=== PATIENT | male | born 1960 | race Caucasian/White ===

== ENCOUNTER 2016-09-29 07:11 | Inpatient (IN) ==
--- NOTE | 2016-09-26 22:58 | Discharge Summary ---
<GalindoKiran - Last Filed: 09/29/16 09:54> Date of Encounter: 09/29/16 - Discharge Diagnosis (1) Hypertension Priority: Secondary Status: Chronic Qualifiers: Hypertension type: essential hypertension Qualified Code(s): I10 - Essential (primary) hypertension (2) Obstructive sleep apnea Priority: Secondary Status: Chronic (3) Arthritis of knee, left Priority: Primary Status: Chronic (4) Status post total knee replacement, left Priority: Primary Status: Acute - Discharge Medications Home Medications: Atorvastatin Calcium 40 mg PO DAILY 02/07/16 [History] Fluticasone Propionate Nasal [Flonase] 50 mcg NS BID PRN 02/07/16 [History] Levothyroxine Sodium 25 mcg PO DAILY 02/07/16 [History] Trazodone HCl 150 mg PO HS PRN 02/07/16 [History] Aspirin Enteric Coated [Aspirin EC] 325 mg PO DAILY #21 tablet. 09/26/16 [Rx] OxyCODONE Immed Rel [Roxicodone 5 MG] 5 - 10 mg PO Q6H PRN #40 tablet 09/26/16 [ Rx] Etodolac 500 mg PO Q12H 09/29/16 [History] Pregabalin [Lyrica] 100 mg PO BID 09/29/16 [History] Allergies/Adverse Reactions: Allergies gabapentin Allergy (Verified 09/29/16 08:09) Rash hydrocodone Adverse Reaction (Verified 09/29/16 08:09) "BREAK OUT" Primary care physician: PCP NONE - Patient Status Disposition: Home, Self-Care Condition: Good - Discharge Instructions Follow Up With: NONE,PCP [Primary Care Provider] - Additional Instructions: Opsite dressing, leave intact until first post-operative visit. If dressing becomes >50% saturated, contact office, remove dressing and place appropriate dressing in its place. Do not allow for dressing to get wet. Brad in place, plan to remove at post-operative day #14-16. Total Joint Precautions x 6 weeks Apply cold therapy wrap 3-6x/day for 20 minutes at a time. Encourage ambulation throughout the day Use Incentive spirometer 10x/hour. Elevate affected extremity above heart as tolerated. Brace: Wear knee immobilizer at night x 2 weeks. D/C to Home this AM - has therapist at home who will be working with him. - Hospital Course Hospital course: Mr. Terrazas is a 56 year old male - Time Spent with Patient Total time spent providing and/or coordinating discharge services: <Berkley Shook Sadaf - Last Filed: 10/01/16 10:28> Date of Encounter: 10/01/16 Time of Encounter: 10:25 - Discharge Diagnosis (1) Arthritis of knee, left Priority: Primary Status: Chronic (2) Status post total knee replacement, left Priority: Primary Status: Acute (3) Hypertension Priority: Secondary Status: Chronic Qualifiers: Hypertension type: essential hypertension Qualified Code(s): I10 - Essential (primary) hypertension (4) Obstructive sleep apnea Priority: Secondary Status: Chronic Comments: CPAP Date of admission: 09/29/16 Primary care physician: PCP NONE Discharging clinician: Kiran Galindo - Patient Status Functional capacity at discharge: uses cane/walker Overall status at discharge: patient is back to baseline - Diet and Activity Activity: as per physical therapy - Hospital Course Hospital course: Mr. Terrazas is a 56 year old male, status post Left TKR. He had an uneventful post-operative recovery course. He received antibiotics and physical therapy and were discharged in stable condition. There will follow-up in the office in 2 weeks. Opsite dressing, leave intact until first post-operative visit. If dressing becomes >50% saturated, contact office, remove dressing and place appropriate dressing in its place. Do not allow for dressing to get wet. [place] in place, plan to remove at post-operative day #14-16. Total Joint Precautions x 6 weeks Apply cold therapy wrap 3-6x/day for 20 minutes at a time. Encourage ambulation throughout the day Use Incentive spirometer 10x/hour. Elevate affected extremity above heart as tolerated. Brace: Wear knee immobilizer at night x 2 weeks. - Time Spent with Patient Total time spent providing and/or coordinating discharge services: Less than 30 minutes
--- NOTE | 2016-09-29 07:25 | History & Physical Report ---
Date of Encounter: 09/29/16 Time of Encounter: 07:25 24 Hour HP Update - Instructions Instructions: If the History and Physical is less than 30 days old and was completed prior to A.M. admission and or procedure and has NOT been updated on calendar day of procedure please complete this update prior to performing procedure. - Update Patient reports changes in Medical Condition: No Changes in examination, assessment, or condition: No Changes in Medication: No Preop tests/diagnostics Reviewed: Yes Surgery Remains Indicated: Yes Consent for Planned Operative Procedure(s) Verified: Yes - Pre-Operative Checklist Preoperative Checklist Indicated: No Prophylactic Antibiotic Ordered: Yes Is VTE Prophylaxis Indicated?: Yes
--- NOTE | 2016-09-29 07:51 | Anesthesia Evaluation PreOp ---
Date of Encounter: 09/29/16 Time of Encounter: 07:48 - Past History Planned Operation: l tka Cardiac History: Hyperlipidemia Pulmonary History: JERRY Dx VEHICLE TRIMMER History: Other (bilat blaine, anxiety, depression, chronic lbp with radic) Other Medical History: Thyroid, GERD Anesthesia History: No Prior Anesthetic Complications, Past Anesthesia ( cholecyst, rih, t&a, lumbar x6, sinus x 2, l tka, l knee arth) Alcohol Use: none Drug use: none Medications and Allergies Atorvastatin Calcium 40 mg PO DAILY 02/07/16 [History] Citalopram Hydrobromide [Celexa] 20 mg PO DAILY 02/07/16 [History] Fluticasone Propionate Nasal [Flonase] 50 mcg NS BID PRN 02/07/16 [History] Gabapentin [Neurontin] 600 mg PO TID 02/07/16 [History] Levothyroxine Sodium 25 mcg PO DAILY 02/07/16 [History] Meclizine HCl [Verticalm] 25 mg PO DAILY PRN 02/07/16 [History] Omeprazole 20 mg PO DAILY 02/07/16 [History] Trazodone HCl 150 mg PO HS PRN 02/07/16 [History] Cyclobenzaprine [Flexeril] 10 mg PO TID #15 tablet 05/12/16 [Rx] Ibuprofen [Motrin] 800 mg PO Q8HR #30 tablet 08/06/16 [Rx] Aspirin Enteric Coated [Aspirin EC] 325 mg PO DAILY #21 tablet. 09/26/16 [Rx] OxyCODONE Immed Rel [Roxicodone 5 MG] 5 - 10 mg PO Q6H PRN #40 tablet 09/26/16 [ Rx] Allergies gabapentin Allergy (Verified 07/30/16 21:05) Rash hydrocodone Allergy (Verified 07/30/16 21:05) "BREAK OUT" - Meds/Allergy Pre-op Review Medications Reviewed: Yes Allergies Reviewed: Yes Beta Blockers on Current Med List: No Anesthesia Results - Labs Laboratory Tests 09/24/16 09/24/16 09/24/16 08:05 08:05 08:05 Hgb 13.3 Hct 40.6 Plt Count 255 PT 11.4 INR 1.1 APTT 31.3 Sodium 142 Potassium 3.8 Creatinine 0.93 Anesthesia Exam O2 Sat Height 1.73 m Height 1.73 m Weight 83.461 kg Weight 83.461 kg O2 Sat by Pulse Oximetry 95 Vital Signs Temp Pulse Resp BP Pulse Ox 98.0 F 74 18 141/87 95 09/29/16 07:27 09/29/16 07:27 09/29/16 07:27 09/29/16 07:27 09/29/16 07:27 Height: 1.73 Weight: 83 NPO (# of Hours): >8 - HEENT Pupil (Motor): Pupils equal, EOMI Mallampati: II Teeth: Poor dentition Oral Opening: Greater than 3 - VEHICLE TRIMMER LOC: Oriented VEHICLE TRIMMER Motor: Normal RUE, Normal LUE, Normal RLE, Normal LLE, Normal Face VEHICLE TRIMMER Sensory: Normal: RUE, LUE, RLE, LLE, Face - Cardiac Rhythm: Regular Murmur: None - Pulmonary Breath Sounds: bilateral Clear Respiratory Effort: Symmetrical Anesthesia Assess/Plan ASA Score: 2 (lidocaine gtt, ketamine gtt) Modified Keyes Scale for Level of Consciousness: Cooperative, oriented, and tranquil Anesthetic Plan: General Monitoring Plan: Standard Monitors Recovery Plan: PACU
[2016-09-29] MEDS ORDERED: Ringers Solution, Lactated 1,000 ML IVC SCH ×5 (08:00→12:44)
[2016-09-29] MEDS ORDERED: CloNIDine Patch 0.1 MG PATCH (WEEKLY) TD SCH ×2 (08:00→12:44)
[2016-09-29] MEDS: Ringers Solution, Lactated 1,000 ML IVC SCH ×2 (08:21→11:57)
[2016-09-29] MEDS ORDERED: Dexamethasone 4 MG/ML VIAL ONE (08:33)
[2016-09-29] MEDS ORDERED: *HR* Propofol 200 MG/20 ML VIAL IVP ONE (08:33)
[2016-09-29] MEDS ORDERED: Ondansetron 4 MG/2 ML VIAL ONE (08:33)
[2016-09-29] MEDS ORDERED: *HR* Midazolam HCl 2 MG/2 ML VIAL ONE (08:33)
[2016-09-29] MEDS ORDERED: *HR* FentaNYL (PF) 100 MCG/2 ML VIAL ONE ×2 (08:33→12:11)
[2016-09-29] MEDS ORDERED: Lidocaine -MPF 2% 2 ML VIAL ONE (08:34)
[2016-09-29] MEDS ORDERED: CeFAZolin Pre 2,000 MG/100 ML 2,000 MG/100 ML BAG IVPB ONE ×2 (09:02→12:44)
[2016-09-29] MEDS ORDERED: Ketamine *HR* 500 MG/10 ML MDV ONE (09:33)
[2016-09-29] MEDS ORDERED: *HR* HYDROmorphone (PF) 1 MG/ML SYRINGE IVP PRN (09:56)
[2016-09-29] MEDS ORDERED: *HR* OxyCODONE Immed Rel 5 MG TABLET PO PRN ×3 (09:56→12:44)
[2016-09-29] MEDS ORDERED: Sennosides 8.6 MG TABLET PO PRN ×2 (09:56→21:00)
[2016-09-29] MEDS ORDERED: Ondansetron 4 MG/2 ML VIAL IVP PRN ×3 (09:56→12:44)
[2016-09-29] MEDS ORDERED: Naloxone 0.4 MG/ML INJ IVP PRN ×3 (09:56→12:44)
[2016-09-29] MEDS ORDERED: MOM Conc 10 ML UD.LIQ PO PRN ×2 (09:56→21:00)
[2016-09-29] MEDS ORDERED: *HR* Meperidine 25 MG/ML SYRINGE IVP PRN (09:58)
[2016-09-29] MEDS ORDERED: *HR* HYDROmorphone 2 MG/ML SYRINGE ONE (10:10)
[2016-09-29] MEDS: *HR* HYDROmorphone (PF) 1 MG/ML SYRINGE IVP PRN ×6 (11:25→21:32)
[2016-09-29] MEDS ORDERED: *HR* Phenylephrine 10 MG/ML VIAL ONE (11:44)
--- NOTE | 2016-09-29 11:51 | Orthopedic Operative Note ---
Date of procedure: 09/29/16 Pre-op diagnosis: Left knee arthritis Post-op diagnosis: same Procedure: Procedure: Left Total knee replacement Estimated blood loss: 200 cc Hardware: Metal and polyethylene replacement. Arthrex Femur:8 Tibia:7 PS insert:10 Patella:40 Exam Under anesthesia: Full motion no instability Procedural Notes: Grade 4 arthritic changes all 3 compartments Operative procedure: The patient was brought to the operating room and placed on the operating room table. After general anesthesia was administered the operative knee was examined. Findings were noted in the exam under anesthesia. The operative extremity was prepped and draped in sterile surgical fashion. The patient received IV antibiotics prior to skin incision. A standard midline incision was made centered over the patella. The incision was made through the skin and subcutaneous tissue. A medial parapatellar tendon approach was performed. Care was taken to preserve tissue along the medial aspect of the patella. And to protect the patella tendon. The deep MCL was released off the medial tibia. The infra patella fat pad was excised. Knee was brought into flexion. Patient noted to have grade 4 arthritic changes all 3 compartments. The entry hole was made for the intramedullary femoral guide. The guide was seated in 6 degrees of valgus. Anterior cut was made followed by the distal cut. The ACL the PCL the medial and the lateral menisci were excised. The tibia was subluxed forward. The entry hole was made for the intramedullary tibial guide. Guide was seated to resect 2 mm off the more abnormal side. The knee was brought into flexion the distal femur was sized to an 8. The femoral guide was seated, the anterior cut was made followed by the posterior condylar cut, followed by the chamfer cuts. The finishing guide was seated the box cut was made and the lug holes were drilled. The tibia was sized to a 7, the tibial tray was seated and prepared with the large drill followed by the fin cutter. Trial reduction revealed full extension no varus valgus instability with the appropriate 10 PS Saskia. The patella was everted and cut was made at the level of the insertion of the quadriceps and patella tendon. The patella was sized to a 40 the guide was seated and the lug holes are drilled. Trial reduction revealed excellent patella tracking. All trial components were removed all bony surfaces were irrigated. The tibia was cemented first followed by the femur. The 10 PS Saskia was seated and the knee was brought into full extension. The patella was cemented and held in place with the patellar holding clamp. After the cement had hardened, the knee sat for 2 minutes with a Betadine saline solution. The knee was then irrigated out with 2 L of pulse irrigation. The knee was closed by the PA. The extensor mechanism was closed with #2 FiberWire suture and #2 PDS suture. The subcutaneous tissue was then irrigated and closed deep with #1 PDS suture superficially with 0 PDS suture and skin was closed with skin boston. The patient was then placed in a sterile dressing and a postoperative brace extubated and transferred to recovery room in stable condition. Anesthesia: CAROLE Surgeon: Kiran Galindo Condition: stable Disposition: PACU
--- NOTE | 2016-09-29 12:16 | Anesthesia Evaluation Post Op ---
Date of Encounter: 09/29/16 Time of Encounter: 12:15 - Vital Signs Vital Signs: Vital Signs/O2 Sat/Glucose, Most Current Temp Pulse Resp BP Pulse Ox 09/29/16 12:05 99.2 F 84 16 139/83 98 09/29/16 11:55 83 16 121/82 98 09/29/16 11:45 82 14 132/87 99 09/29/16 11:35 99.4 F 90 16 132/88 99 09/29/16 11:25 84 14 131/83 98 09/29/16 11:15 85 14 120/91 98 09/29/16 11:05 97.1 F L 84 16 138/86 98 - Lungs Lungs: Clear Ascult./Percussion - Airway Airway: Non-obstructed - Cardiovascular Regular Rate - Mental Status Mental Status: Alert & Oriented, Answers Appropriately - Pain Pain Scale: 2 - Nausea Vomiting Nausea Vomiting: Not Present - Hydration Hydration: Tolerates oral liquids - Discharge PostOp Status: Transfer Patient to floor
[2016-09-29] MEDS ORDERED: Fluticasone Propionate Nasal 50 MCG/SPRAY BOTTLE NS PRN (12:44)
[2016-09-29] MEDS: *HR* OxyCODONE Immed Rel 5 MG TABLET PO PRN ×2 (13:24→20:06)
[2016-09-29 13:42] LABS: Hematocrit 40.5 % (37.5-50.1)
[2016-09-29] MEDS: ceFAZolin 2,000 MG in D5% in Water 100 ML IVPB SCH ×2 (15:35→23:52)
[2016-09-29] MEDS ORDERED: ceFAZolin 2,000 MG in D5% in Water 100 ML IVPB SCH (16:00)
[2016-09-29] MEDS: *HR* Enoxaparin 30 MG/0.3 ML SYRINGE SQ SCH (17:23)
[2016-09-29] MEDS ORDERED: *HR* Enoxaparin 30 MG/0.3 ML SYRINGE SQ SCH (18:00)
[2016-09-29] MEDS: Pregabalin 50 MG CAPSULE PO SCH (20:06)
[2016-09-29] MEDS ORDERED: Temazepam 15 MG CAPSULE PO PRN ×2 (21:00)
[2016-09-29] MEDS ORDERED: traZODone 50 MG TABLET PO PRN (21:00)
[2016-09-30] MEDS: *HR* OxyCODONE Immed Rel 5 MG TABLET PO PRN ×4 (01:24→21:51)
[2016-09-30] MEDS: *HR* HYDROmorphone (PF) 1 MG/ML SYRINGE IVP PRN (03:38)
[2016-09-30] MEDS: *HR* Enoxaparin 30 MG/0.3 ML SYRINGE SQ SCH ×2 (05:14→17:17)
[2016-09-30] MEDS: Levothyroxine 25 MCG TABLET PO SCH (05:25)
[2016-09-30 06:47] LABS: BUN/Creatinine Ratio 8 (6-26); Blood Urea Nitrogen 7 mg/dL (8-26); Carbon Dioxide 30 mEq/L (19-29); Chloride 98 mEq/L (98-109); Glucose 155 mg/dL (70-99); Osmolality,Calculated 281 (280-300); Potassium 3.6 mEq/L (3.5-4.5); Sodium 135 mEq/L (136-145); eGFR For African Americans > 60 (> 60); eGFR For Non-African Americans > 60 (> 60)
[2016-09-30 06:59] LABS: Hematocrit 30.2 % (37.5-50.1)
[2016-09-30 07:22] LABS: Hemoglobin 10.2 g/dL (12.9-16.9)
[2016-09-30] MEDS: Pregabalin 50 MG CAPSULE PO SCH ×2 (09:31→21:52)
--- NOTE | 2016-09-30 12:35 | Orthopedics Progress Note ---
Date of Encounter: 09/30/16 Time of Encounter: 07:45 - Assessment and Plan (1) Arthritis of knee, left Current Visit: Yes Status: Chronic POD#3 Left TKR - Patient doing well, A&O in bed. Pain controlled. Vitals stable. Afebrile. H/H - stable - Plan: LLE: WBAT, in knee immobilizer x 2 weeks at night. D/C to home likely today or tomorrow (2) Status post total knee replacement, left Current Visit: Yes Status: Acute (3) Hypertension Current Visit: No Status: Chronic Qualifiers: Hypertension type: essential hypertension Qualified Code(s): I10 - Essential (primary) hypertension (4) Obstructive sleep apnea Current Visit: No Status: Chronic Subjective Principal diagnosis: s/p Left TKR Interval history: POD#3 Left TKR - Patient doing well, A&O in bed. Pain controlled. Vitals stable. Afebrile. H/H - stable LLE: Minimal swelling, no erythema or ecchymosis noted. No calf tenderness or warmth noted. ROM limited. NV intact distally. Plan: LLE: WBAT, in knee immobilizer x 2 weeks at night. D/C to Home likely today or tomorrow Objective Vital signs: Vital Signs Temp Pulse Resp BP Pulse Ox 09/30/16 10:39 99.2 F 84 16 146/70 99 09/30/16 06:35 98.5 F 93 18 144/84 99 09/30/16 04:04 98.8 F 88 20 147/89 100 09/29/16 23:41 99.0 F 87 18 137/80 97 09/29/16 19:41 98.2 F 87 20 154/86 100 09/29/16 15:38 97.9 F 103 13 140/80 97 09/29/16 14:32 98.0 F 18 146/89 97 09/29/16 13:35 97.7 F 88 16 153/89 100 09/29/16 13:14 97.6 F 95 14 158/85 100 09/29/16 12:56 100 09/29/16 12:38 97.9 F 91 16 149/82 100 Intake and Output 09/29/16 09/30/16 09/30/16 23:59 07:59 15:59 Intake Total 440 / 440 Output Total 700 / 700 675 / 675 Balance -260 / -260 -675 / -675 Intake: IV Fluids 100 / 100 Ancef 2,000 MG In 100 / 100 Dextrose 5% 100 ML @ 200 mls/hr IVPB Q8HR [facility] Rx#: [id number] Oral 340 / 340 Output: Urine 700 / 700 400 / 400 Catheter 275 / 275 Other: Meal Dinner Percent of Meal Consumed 100% Weight 84.141 kg Patient Weight 09/30/16 23:59 Weight 84.141 kg - Labs CBC & BMP: 09/30/16 05:51 09/30/16 05:51 Labs: Abnormal lab results Hgb 10.2 g/dL (12.9-16.9) L D 09/30/16 05:51 Hct 30.2 % (37.5-50.1) L 09/30/16 05:51 Sodium 135 mEq/L (136-145) L 09/30/16 05:51 Carbon Dioxide 30 mEq/L (19-29) H 09/30/16 05:51 BUN 7 mg/dL (8-26) L 09/30/16 05:51 Glucose 155 mg/dL (70-99) H 09/30/16 05:51 - VTE Documentation of Mechanical Device: Venous foot pump, device Consult Discharge Plan - Plan Referrals: NONE,PCP [Primary Care Provider] -
[2016-10-01] MEDS: *HR* OxyCODONE Immed Rel 5 MG TABLET PO PRN ×2 (05:43→12:28)
[2016-10-01] MEDS: *HR* Enoxaparin 30 MG/0.3 ML SYRINGE SQ SCH (05:43)
[2016-10-01] MEDS: Levothyroxine 25 MCG TABLET PO SCH (05:43)
[2016-10-01 06:16] LABS: Hematocrit 29.6 % (37.5-50.1); Hemoglobin 9.6 g/dL (12.9-16.9)
[2016-10-01 06:23] LABS: BUN/Creatinine Ratio 9 (6-26); Blood Urea Nitrogen 9 mg/dL (8-26); Calcium 9.3 mg/dL (8.6-10.8); Carbon Dioxide 32 mEq/L (19-29); Chloride 97 mEq/L (98-109); Glucose 127 mg/dL (70-99); Osmolality,Calculated 278 (280-300); Potassium 3.7 mEq/L (3.5-4.5); Sodium 134 mEq/L (136-145); eGFR For African Americans > 60 (> 60); eGFR For Non-African Americans > 60 (> 60)
[2016-10-01] MEDS: Pregabalin 50 MG CAPSULE PO SCH (08:53)
--- NOTE | 2016-10-01 10:26 | Orthopedics Progress Note ---
Date of Encounter: 10/01/16 Time of Encounter: 07:45 - Assessment and Plan (1) Arthritis of knee, left Current Visit: Yes Status: Chronic POD#2 Left TKR - Patient doing well, A&O in bed. Pain controlled. Vitals stable. Afebrile. H/H - 9.6/29.6 - asymptomatic Plan: LLE: WBAT, in knee immobilizer x 2 weeks at night. D/C to Home this AM - has therapist at home who will be working with him. (2) Status post total knee replacement, left Current Visit: Yes Status: Acute (3) Hypertension Current Visit: No Status: Chronic Qualifiers: Hypertension type: essential hypertension Qualified Code(s): I10 - Essential (primary) hypertension (4) Obstructive sleep apnea Current Visit: No Status: Chronic Subjective Principal diagnosis: s/p Left TKR Interval history: POD#2 Left TKR - Patient doing well, A&O in bed. Pain controlled. Vitals stable. Afebrile. H/H - 9.6/29.6 - asymptomatic LLE: Minimal swelling, no erythema or ecchymosis noted. No calf tenderness or warmth noted. ROM limited. NV intact distally. Plan: LLE: WBAT, in knee immobilizer x 2 weeks at night. D/C to Home this AM - has therapist at home who will be working with him. Objective Vital signs: Vital Signs Temp Pulse Resp BP Pulse Ox 10/01/16 08:20 97.9 F 78 18 112/61 98 10/01/16 01:08 98.6 F 106 19 104/71 98 09/30/16 22:26 99.8 F H 112 16 130/81 96 09/30/16 15:08 98.7 F 87 16 143/79 98 09/30/16 10:39 99.2 F 84 16 146/70 99 Intake and Output 09/30/16 10/01/16 10/01/16 23:59 07:59 15:59 Intake Total 290 / 290 1999 480 / 480 Output Total 450 / 450 350 / 350 Balance -160 / -160 1999 130 / 130 Intake: Oral 290 / 290 1999 480 / 480 Output: Urine 450 / 450 350 / 350 Other: Meal Breakfast Percent of Meal Consumed 100% # Voids 2 Incision: clean and dry - Labs CBC & BMP: 10/01/16 06:04 10/01/16 06:04 Labs: Abnormal lab results Hgb 9.6 g/dL (12.9-16.9) L 10/01/16 06:04 Hct 29.6 % (37.5-50.1) L 10/01/16 06:04 Sodium 134 mEq/L (136-145) L 10/01/16 06:04 Chloride 97 mEq/L (98-109) L 10/01/16 06:04 Carbon Dioxide 32 mEq/L (19-29) H 10/01/16 06:04 Glucose 127 mg/dL (70-99) H 10/01/16 06:04 Calculated Osmolality 278 (280-300) L 10/01/16 06:04 - VTE Documentation of Mechanical Device: Venous foot pump, device Consult Discharge Plan - Plan Additional Instructions: Opsite dressing, leave intact until first post-operative visit. If dressing becomes >50% saturated, contact office, remove dressing and place appropriate dressing in its place. Do not allow for dressing to get wet. Brad in place, plan to remove at post-operative day #14-16. Total Joint Precautions x 6 weeks Apply cold therapy wrap 3-6x/day for 20 minutes at a time. Encourage ambulation throughout the day Use Incentive spirometer 10x/hour. Elevate affected extremity above heart as tolerated. Brace: Wear knee immobilizer at night x 2 weeks. D/C to Home this AM - has therapist at home who will be working with him. Referrals: NONE,PCP [Primary Care Provider] -
[2016-10-01 11:20] VITALS: BP 110/54
== END 2016-10-01 16:42 | disposition home or self-care (01) | DRG 470 ==
LOC: SAMDAY 07:11 → 3NENU 12:44
PROVIDERS: ADMIT Orthopaedic Surgery; ATTEND Orthopaedic Surgery

== ENCOUNTER 2018-07-18 15:12 | Observation (INO) ==
[2018-07-18] MEDS ORDERED: *HR* FentaNYL (PF) 100 MCG/2 ML VIAL IVP ONE ×2 (15:40→18:24)
[2018-07-18] MEDS ORDERED: Aspirin 81 MG TAB.CHEW PO ONE (15:40)
[2018-07-18] MEDS ORDERED: Ondansetron 4 MG/2 ML VIAL IVP ONE ×2 (15:40→20:34)
[2018-07-18 15:54] LABS: Basophils % 0.4 %; Eosinophils # 0.1 K/mcL (0.0-0.6); Eosinophils % 2.4 %; Hematocrit 42.8 % (37.5-50.1); Hemoglobin 14.4 g/dL (12.9-16.9); Immature Granulocytes % 0.4 % (0-4); Lymphocytes # 1.1 K/mcL (0.6-4.6); Lymphocytes % 19.4 %; Mean Corpuscular HGB Conc 33.6 g/dL (31.6-35.5); Mean Corpuscular Hemoglobin 30.3 pg (28.0-33.3); Mean Corpuscular Volume 89.9 fL (83.0-100.0); Mean Platelet Volume 8.9 fL (9.4-12.4); Monocytes # 0.5 K/mcL (0.0-1.3); Monocytes % 9.8 %; Neutrophils # 3.7 K/mcL (1.6-8.9); Platelet Count 251 K/mcL (140-400); Red Blood Count 4.76 M/mcL (4.19-5.50); Red Cell Distribution Width 12.2 % (11.5-14.5); Segmented Neutrophils % 67.6 %
[2018-07-18 16:07] LABS: BUN/Creatinine Ratio 11 (6-26); Blood Urea Nitrogen 9 mg/dL (6-20); Calcium 9.6 mg/dL (8.6-10.3); Carbon Dioxide 32 mEq/L (23-29); Chloride 105 mEq/L (98-107); Glucose 100 mg/dL (70-105); Lipase 26 Units/L (11-82); Osmolality,Calculated 289 (280-300); Potassium 3.8 mEq/L (3.5-5.1); Sodium 140 mEq/L (136-145); Troponin I < 0.03 ng/mL (< 0.04); eGFR For Non-African Americans > 60 (> 60)
--- NOTE | 2018-07-18 16:10 | Emergency Department Note ---
Disposition Clinical Impression: Chronic back pain Qualifiers: Back pain location: low back pain Back pain laterality: unspecified Sciatica presence: unspecified whether sciatica present Qualified Code(s): M54.5 - Low back pain Chronic knee pain Qualifiers: Laterality: bilateral Qualified Code(s): M25.561 - Pain in right knee Chest pain Qualifiers: Chest pain type: precordial pain Qualified Code(s): R07.2 - Precordial pain Disposition: Admitted As Inpatient Condition: Fair Time of Disposition: 19:11 Chest Pain HPI - General Chief Complaint: ED Chest Pain Stated Complaint: chest/back/knee pain Time Seen by Provider: 07/18/18 15:21 Source: patient Mode of arrival: ambulatory Limitations: no limitations Vital Signs Reviewed: Yes Nursing Notes Reviewed: Yes - History of Present Illness HPI Narrative: 58-year-old male presents to the emergency department for chest pain, back pain, left knee pain. Patient said that he had a stent placed back in February by Dr. Israel he said that during that time he had chest pain and arm numbness is beginning to have slight chest pressure but believes he has a cold as he has had a cough for the last few days but denies any fevers. He says is 4 out of 10 center chest pressure nonradiating. He is also complaining of arm numbness which is similar to the events that occurred when he had his stent placed. He said all this began approximate 2 days ago and is slowly worsened. It is not worse with exertion he is not short of breath. These had no nausea or vomiting. He is complaining of some lower lumbar back pain. They said his chronic disease had at least 5 back procedures over his lifetime and has seen multiple surgeons. He said he normally deals with chronic back pain but says the pain is now worse he is complaining of all lumbar pain. So this is chronic pain that she is getting worse there is no numbness or tingling no loss of bladder or bowel movements said this hurts whenever he moves his back. Patient also complaining of left knee pain he does see Dr. Galindo has had bilateral total knee replacements. He initially saw Dr. Galindo on Tuesday where they did a steroid injection of his knee he said that did not help and his continue to have pain. Has not noticed any erythema or redness or swelling to the knee just increased in continued pain. He has not taken anything for pain at this time. Patient otherwise has no other complaints. Severity scale (1-10): 7 - Related Data Home Medications Medication Instructions Recorded Confirmed Levothyroxine [Synthroid] 88 mcg PO 0630 11/04/17 07/18/18 Previous Rx's Medication Instructions Recorded Aspirin 81 mg PO DAILY #30 tab.chew 03/04/18 Atorvastatin [Lipitor] 40 mg PO HS #30 tablet 03/04/18 Clopidogrel [Plavix] 75 mg PO DAILY #30 tablet 03/04/18 Isosorbide MONOnitrate (24 HR) 60 mg PO DAILY #30 tab.er.24h 07/20/18 [Imdur] Allergies Allergy/AdvReac Type Severity Reaction Status Date / Time gabapentin Allergy Rash Verified 03/03/18 06:47 acetaminophen [From Vicodin] AdvReac Rash Verified 03/03/18 06:47 hydrocodone [From Vicodin] AdvReac Rash Verified 03/03/18 06:47 All systems ED: reviewed and negative except as stated. Review of Systems: As Per HPI Chest Pain PMH - Past Medical History Medical history: Reports: GERD, hyperlipidemia, thyroid disease Surgical history: Reports: cholecystectomy, herniorrhaphy, knee replacement, orthopedic, other, tonsillectomy Psychiatric history: Reports: anxiety, depression - Social History Smoking Status: Never smoker Alcohol use: Reports: none Drug use: Reports: none Physical Exam - General Limitations: no limitations General appearance: alert - Head Head exam: atraumatic, normocephalic, normal inspection - Eye Eye exam: Present: normal appearance, PERRL, EOMI - ENT ENT exam: normal exam, normal oropharynx, mucous membranes moist - Neck Neck exam: Present: normal inspection, full ROM, trachea midline - Chest Chest inspection: Present: normal inspection, symmetric chest wall rise - Respiratory Respiratory exam: Present: normal lung sounds bilaterally. Absent: respiratory distress, wheezes, accessory muscle use - Cardiovascular Cardiovascular exam: Present: regular rate, normal rhythm, normal heart sounds - Abdominal Exam Abdominal exam: Present: soft, Non-Tender, normal bowel sounds. Absent: tenderness, distention, guarding, rebound, rigidity - Extremities Exam Extremities exam: Present: normal inspection, full ROM. Absent: tenderness, pedal edema - Expanded Lower Extremity Exam Hip/Pelvis exam: Present: normal inspection, full ROM Upper leg exam: Present: normal inspection, full ROM Knee exam: Present: normal inspection, full ROM, knee extension intact. Absent: tenderness, swelling, deformity, erythema, effusion, anterior drawer sign, posterior draw sign, pain with valgus, laxity with valgus, pain with varus, laxity with varus Lower leg exam: Present: normal inspection, full ROM Ankle exam: Present: normal inspection, full ROM Foot/toe exam: Present: normal inspection, full ROM Neurovascular/Tendon exam: Absent: motor deficit, sensory deficit, tendon deficit - Back Exam Back exam: Present: normal inspection, full ROM, tenderness (Tenderness on palp ating the lumbar spine does have multiple scars all across the lumbar spine.). Absent: CVA tenderness (R), CVA tenderness (L) - Neurological Exam Neurological exam: Present: alert, oriented X3 - Skin Skin exam: Present: warm, dry, intact, normal color Course Course Narrative: We will do chest pain workup and give patient pain medications. We will also get left knee x-ray. Patient treated with antinausea and pain medication in the emergency department. We will also do CT angiogram of the chest and pelvis dissection study as well as CT of the lumbar spine. Disposition pending results Vital Signs Temperature 98.3 F 07/18/18 15:20 Pulse Rate 80 07/18/18 15:20 Respiratory Rate 18 07/18/18 15:20 Blood Pressure 164/111 07/18/18 15:20 O2 Sat by Pulse Oximetry 99 07/18/18 15:20 Temperature 98.3 F 07/18/18 15:20 Pulse Rate 67 07/18/18 18:43 Respiratory Rate 18 07/18/18 18:43 Blood Pressure 137/77 07/18/18 18:43 O2 Sat by Pulse Oximetry 100 07/18/18 18:43 Oxygen Delivery Oxygen Delivery Room Air Chest Pain - MDM Narrative Medical decision making narrative: 58-year-old male presented to the emergency department with bilateral arm numbness and some mild chest pain as well as back pain and left knee pain. X- ray of the left knee was normal back CT also was normal. I think the back pain worsening from his chronic pain is secondary to his increase in knee pain and he has been favoring the other side causing more and worsening of his back pain. I did get a chest pain workup troponin came back negative chest x-ray came back negative as well. All other labs were within normal limits. Due to patient's history of having a stent placed with similar symptoms involving his arm numbness I felt that admission would be best for this patient. I spoke with the patient he does agree with this. He did receive aspirin. I spoke with the hospitalist Dr. Reagan who agreed to admit the patient. Patient is admitted in stable condition. Chest X-Ray 07/18/18 15:39 IMPRESSION: No acute cardiopulmonary process. D/ / Patrick Perez MD / Patrick Perez MD Interpreting Provider: Patrick Perez MD Knee X-Ray 07/18/18 15:40 IMPRESSION: Status post left total knee arthroplasty. No radiographic evidence of hardware complication. Small suprapatellar effusion. D/ / 07/18/2018 16:31:30 Patrick Perez MD / [place]ell Interpreting Provider: Patrick Perez MD CT Dissection 07/18/18 16:24 IMPRESSION: 1. No acute vascular abnormality. No aneurysm or dissection. 2. Calcific atherosclerosis aorta and coronary arteries. 3. Mild intra and extrahepatic bile duct dilatation status post cholecystectomy typical of reservoir effect. 4. Benign right hepatic lobe cavernous hemangiomas require no additional evaluation or follow-up. D/ / Vaughn Caicedo / Vaughn Caicedo Interpreting Provider: Vaughn Caicedo Lumbar Spine CT 07/18/18 16:24 IMPRESSION: No acute osseous abnormality. Postsurgical changes from L3-L4 through L5-S1 laminectomies and L5-S1 discectomy. D/ / 07/18/2018 17:40:49 Patrick Perez MD / dinesh Interpreting Provider: Patrick Perez MD - Medical Records Medical records reviewed: Yes I reviewed the patient's medical records. - Lab Data Lab results reviewed: Yes I reviewed the patient's lab results. Result diagrams: 07/19/18 04:24 07/19/18 04:24 Lab Results 07/18/18 07/18/18 07/18/18 Range/Units 15:30 15:30 15:30 WBC 5.4 (4.3-11.1) K/mcL RBC 4.76 (4.19-5.50) M/mcL Hgb 14.4 (12.9-16.9) g/dL Hct 42.8 (37.5-50.1) % MCV 89.9 (83.0-100.0) fL MCH 30.3 (28.0-33.3) pg MCHC 33.6 (31.6-35.5) g/dL RDW 12.2 (11.5-14.5) % Plt Count 251 (140-400) K/mcL MPV 8.9 L (9.4-12.4) fL Immature Gran % 0.4 (0-4) % Seg Neutrophils % 67.6 % Lymphocytes % 19.4 % Monocytes % 9.8 % Eosinophils % 2.4 % Basophils % 0.4 % Neutrophils # 3.7 (1.6-8.9) K/mcL Lymphocytes # 1.1 (0.6-4.6) K/mcL Monocytes # 0.5 (0.0-1.3) K/mcL Eosinophils # 0.1 (0.0-0.6) K/mcL Basophils # 0.0 (0.0-0.2) K/mcL Sodium 140 (136-145) mEq/L Potassium 3.8 (3.5-5.1) mEq/L Chloride 105 (98-107) mEq/L Carbon Dioxide 32 H (23-29) mEq/L BUN 9 (6-20) mg/dL Creatinine 0.83 (0.70-1.30) mg/dL Est GFR ( Amer) > 60 (> 60) Est GFR (Non-Af Amer) > 60 (> 60) BUN/Creatinine Ratio 11 (6-26) Glucose 100 (70-105) mg/dL Calculated Osmolality 289 (280-300) Calcium 9.6 (8.6-10.3) mg/dL Creatine Kinase 53 (30-223) Units/L Troponin I < 0.03 (< 0.04) ng/mL B-Natriuretic Peptide 43 (Less than 100) pg/mL Lipase 26 (11-82) Units/L TSH 4.103 (0.340-5.600) mcIU/mL - Radiology Data Radiology results reviewed: Yes I reviewed the patient's radiology results. - EKG Data EKG attestation: Yes I reviewed and interpreted this EKG. EKG results narrative: EKG done at 1523 review myself and the attending shows sinus rhythm at a rate of 78, PA 154, QRS 119, QTC 434. There is no acute ST changes no acute T-wave changes no other signs of ischemia. No signs of hypertrophy, heart strain, hea rt block. No WPW/Brugada/HOCM. Unchanged when compared with old EKG done 03/27/18. Heart Score - Score History: Moderately Suspicious EKG: Normal Age: 45-65 Risk Factors: Equal/Greater than 3 risk factor or history of atherosclerotic disease Troponin: Less than normal limit HEART Score Total: 4 Attestation Statement - Attestation Attestation: Resident Attestation: I examined this patient and my medical decision making was reviewed with the Resident Physician. I agree with the documented findings, disposition and treatment plan as described except to the extent set forth below. We independently had [id number] contact with the patient. Patient presenting for multiple complaints. Patient complaining about knee pain that he has been seen by specialist for as well as back pain which has undergone multiple surgeries in the past and is likely affected by the knee. However, the patient is also presenting for chest pain which is different than other symptoms he has had in the past. Overall chest pain is concerning for possible cardiac etiology. Patient will undergo further workup for underlying cardiac disease as well as aortic pathology given the chest pain back pain and leg component. General: Well appearing, nontoxic, no acute distress Head: Normocephalic Atraumatic Eyes: PERRL, EOMI ENT: Airway patent, no stridor Neck: supple, no meningismus Chest: Lungs clear to auscultation bilateral Cardiac: Regular rate and rhythm, no murmurs, rubs or gallops Abdomen: soft, nontender, nondistended; no guarding, rebound, or tenderness to percussion Musculoskeletal: Tenderness across the lower back without specific underlying etiology. Calves symmetric, nontender. Skin: No rash, normal skin tone. No swollen joints or erythema or concern for septic joint Neuro: Alert and Oriented to person, place, and time; No focal deficit. Patient's workup was otherwise been nonspecific. Patient will undergo further evaluation for underlying chest pain.
[2018-07-18 16:20] LABS: Thyroid Stimulating Hormone 4.103 mcIU/mL (0.340-5.600)
[2018-07-18] MEDS ORDERED: Isovue-370 500 ML BOTTLE IVP ONE (16:24)
[2018-07-18 17:30] LABS: Creatine Kinase 53 Units/L (30-223)
[2018-07-18] MEDS ORDERED: *HR* Morphine Immed Rel 30 MG TABLET PO ONE (19:08)
[2018-07-18] MEDS ORDERED: Ondansetron 4 MG/2 ML VIAL ONE (20:35)
[2018-07-18] MEDS ORDERED: Nitroglycerin 0.4 MG TAB.SUBL SL PRN (20:47)
[2018-07-18] MEDS ORDERED: *HR* Promethazine 25 MG/ML VIAL IVP PRN (21:35)
[2018-07-18] MEDS ORDERED: Naloxone 0.4 MG/ML INJ IVP PRN (21:35)
--- NOTE | 2018-07-18 23:10 | Internal Med History&Physical ---
Date of Encounter: 07/18/18 Time of Encounter: 21:20 Internal Medicine - H&P: HPI Chief complaint: Chest pain Admitted From: Emergency Dept Plans for Post Hospital Care: Home History of present illness: Mr. Terrazas is a 58 year old male Patient presented to the emergency room with chest pain, back pain and left knee pain. He has significant history of cardiac stent placed back in February, and he had similar pain this at that time. This chest pain he says is worse than that pain however and has been progressively worsening over the last few hours. He has also had associated bilateral hand weakness as well. The pain is located in the center of his chest and does not radiate. He came to the emergency room for further evaluation. In the emergency room patient's vital signs showed no void blood pressure 164/ 111 initially this improved on repeat. He is saturating 99% on room air pulse was 80 with a respiratory rate of 18. He was afebrile. CBC was within normal limits, and BMP was also within normal limits. Initial troponin was undetectable, BNP was 43, lipase 26 TSH 4.103. Chest x-ray was performed that showed no acute cardiopulmonary abnormalities, a CT dissection study was ordered that showed no aneurysm or dissection. Knee x-rays were done as well as lumbar spine CT which are also normal. An EKG was performed that showed sinus rhythm QTC of 434. There is no ST changes or signs of ischemia. Patient was given a sublingual nitroglycerin, 324 mg dose of aspirin, 50 g of fentanyl, and a 30 mg dose of morphine. He is also given 4 mg of Zofran twice. He was sent to the medical floor for further management. Upon my assessment, patient's chest pain continues. He says it is worsened s ary he was seen down in the ER. He does request something to eat however as he has not eaten in almost 24 hours. He also says that he may have a metallic taste in his mouth which he says he has had before after he has received IV contrast. He denies abdominal pain but does have nausea without vomiting. He denies diarrhea and constipation. I repeated another EKG the results of which showed sinus bradycardia with a rate of 54 and a QTc of 416. There are still no ischemic changes noted. Patient states that as far as family history of medical problems, multiple brothers and sisters have all required back surgeries and knee surgeries. He does have a brother that has diabetes, and his mother had COPD. He is a full code. Past Med Surg Social Fam HX - Past Medical History Medical history: GERD, hyperlipidemia, thyroid disease Additional medical history: CHRONIC LOW BACK PAIN, HYPERURICEMIA, INSOMNIA, SLEEP APNEA, NEUROGENIC BLADDER, ED, HEARING LOSS, NOCTURIA, COLON POLYPS, gout Psychiatric history: anxiety, depression - Past Surgical History Surgical History: cholecystectomy, herniorrhaphy, knee replacement Additional surgical history: RETINAL DETACHMENT, SINUS SURGERYx2 , LHC, COLONOSCOPY, bilat total knee, 6 back pain . - Social History Smoking Status: Never smoker Smokeless Tobacco Status: No Alcohol use: none Drug use: none - Family History Father Living Status: Hx Family Cardiac Disorders: Yes (multiple MT) Hx Family Neuromuscular Disorders: Yes (stroke) Brother Living Status: Still Living Hx Family Cardiac Disorders: (multiplle MT) Mother Living Status: Hx Family Respiratory Disorders: Yes (copd) Internal Medicine - H&P: Meds Levothyroxine [Synthroid] 88 mcg PO 0630 11/04/17 [History] Aspirin 81 mg PO DAILY #30 tab.chew 03/04/18 [Rx] Atorvastatin [Lipitor] 40 mg PO HS #30 tablet 03/04/18 [Rx] Clopidogrel [Plavix] 75 mg PO DAILY #30 tablet 03/04/18 [Rx] Isosorbide MONOnitrate (24 HR) [Imdur] 30 mg PO DAILY 07/18/18 [History] Allergy/AdvReac Type Severity Reaction Status Date / Time gabapentin Allergy Rash Verified 03/03/18 06:47 acetaminophen [From Vicodin] AdvReac Rash Verified 03/03/18 06:47 hydrocodone [From Vicodin] AdvReac Rash Verified 03/03/18 06:47 All Systems PM: A 10-system review of systems was performed and is negative for pertinent findings except as documented above in the HPI. - Constitutional Vitals: Temp Pulse Resp BP Pulse Ox 98.1 F 55 16 119/74 100 07/18/18 21:41 07/18/18 21:41 07/18/18 21:41 07/18/18 21:41 07/18/18 21:41 General appearance: Present: cooperative, mild distress, A&O X 3, pleasant, answers questions appropriately Exam: - - Head Head exam: Present: normal inspection - Eye Eye exam: Present: EOMI, normal appearance - Respiratory Respiratory exam: Present: CTAB. Absent: rales, respiratory distress, rhonchi, wheezes - Cardiovascular Cardiovascular exam: Present: RRR. Absent: diastolic murmur, systolic murmur Additional comments: Chest pain not reproducible with palpation - GI/Abdominal GI/Abdominal exam: Present: normal bowel sounds, soft. Absent: tenderness - Extremities Exam Extremities exam: Present: warm, radial pulses palpable and symmetrical. Absent: calf tenderness, pedal edema, tenderness - Neurological Exam Neurological exam: Present: no focal deficits, strengths equal and symetr throughout. Absent: motor sensory deficit, facial droop, speech deficit Additional comments: Hard of hearing - Skin Skin exam: Present: dry, normal color, warm Internal Med - H&P Results - Labs CBC & Chem 7: 07/18/18 15:30 07/18/18 15:30 Labs: Short CBC 07/18/18 Range/Units 15:30 WBC 5.4 (4.3-11.1) K/mcL Hgb 14.4 (12.9-16.9) g/dL Hct 42.8 (37.5-50.1) % Plt Count 251 (140-400) K/mcL Neutrophils # 3.7 (1.6-8.9) K/mcL BMP 07/18/18 15:30 Sodium 140 Potassium 3.8 Chloride 105 Carbon Dioxide 32 H BUN 9 Creatinine 0.83 Glucose 100 Calcium 9.6 Cardiac Enzymes 07/18/18 07/18/18 Range/Units 15:30 22:08 Troponin I < 0.03 < 0.03 (< 0.04) ng/mL - Impressions ITS Impressions Chest X-Ray 07/18/18 15:39 IMPRESSION: No acute cardiopulmonary process. D/ / Patrick Perez MD / Patrick Perez MD Interpreting Provider: Patrick Perez MD Knee X-Ray 07/18/18 15:40 IMPRESSION: Status post left total knee arthroplasty. No radiographic evidence of hardware complication. Small suprapatellar effusion. D/ / 07/18/2018 16:31:30 Patrick Perez MD / [place] Interpreting Provider: Patrick Perez MD CT Dissection 07/18/18 16:24 IMPRESSION: 1. No acute vascular abnormality. No aneurysm or dissection. 2. Calcific atherosclerosis aorta and coronary arteries. 3. Mild intra and extrahepatic bile duct dilatation status post cholecystectomy typical of reservoir effect. 4. Benign right hepatic lobe cavernous hemangiomas require no additional evaluation or follow-up. D/ / Vaughn Caicedo / Vaughn Ciacedo Interpreting Provider: Vaughn Caicedo Lumbar Spine CT 07/18/18 16:24 IMPRESSION: No acute osseous abnormality. Postsurgical changes from L3-L4 through L5-S1 laminectomies and L5-S1 discectomy. D/ / 07/18/2018 17:40:49 Patrick Perez MD / dinesh Interpreting Provider: Patrick Perez MD - Assessment and Plan (1) Chest pain Current Visit: Yes Status: Acute Assessment and plan: Patient presented with chest pain. Imaging negative for acute abnormality. No ischemic changes on EKGs either. patient states that the nitro did not seem to help with the pain. He stated that the morphine did seem to have an effect. Repeat troponin remains undetectable. Cardiac monitoring Continue to trend troponins Echocardiogram in the morning Consider cardiology consultation if pain remains. Morphine 1mg Q1H PRN for pain Qualifiers: Chest pain type: unspecified Qualified Code(s): R07.9 - Chest pain, unspecified (2) Nausea Current Visit: Yes Status: Acute Assessment and plan: Continue anti-nausea medication. Switch from zofran to phenergan (3) CAD (coronary artery disease) Current Visit: No Status: Chronic Assessment and plan: History of 1 stent placed mid LAD in February. History of echocardiogram performed in September of 2017: Impressions: LVEF 60%. Mild left ventricular diastolic dysfunction. Normal right ventricular structure and function. Mild mitral regurgitation. No pulmonary hypertension. With patient's history of stent placement, will repeat an echocardiogram in the morning. Qualifiers: Coronary Disease-Associated Artery/Lesion type: [place] artery [place] vs. transplanted heart: [place] heart Associated angina: angina presence unspecified Qualified Code(s): I25.10 - Atherosclerotic heart disease of [place] coronary artery without angina pectoris (4) Obstructive sleep apnea Current Visit: No Status: Chronic Assessment and plan: Continue home CPAP (5) DVT prophylaxis Current Visit: Yes Status: Acute Assessment and plan: Subcutaneous heparin - Time Spent With Patient Total time spent is greater than 50% in coordination of care (as documented) at patient's floor/unit and/or counseling patient: Greater than 35 minutes
[2018-07-18] MEDS: *HR* Morphine 2 MG/ML SYRINGE IVP PRN (23:25)
[2018-07-19 04:59] LABS: Hemoglobin 13.4 g/dL (12.9-16.9); Mean Corpuscular HGB Conc 33.5 g/dL (31.6-35.5); Mean Corpuscular Hemoglobin 30.6 pg (28.0-33.3); Mean Corpuscular Volume 91.3 fL (83.0-100.0); Platelet Count 212 K/mcL (140-400); Red Blood Count 4.38 M/mcL (4.19-5.50); Red Cell Distribution Width 12.2 % (11.5-14.5)
[2018-07-19] MEDS: *HR* Heparin 5,000 UNIT/ML VIAL SQ SCH ×2 (05:27→16:52)
[2018-07-19] MEDS: *HR* Morphine 2 MG/ML SYRINGE IVP PRN (05:35)
[2018-07-19 05:36] LABS: BUN/Creatinine Ratio 11 (6-26); Blood Urea Nitrogen 10 mg/dL (6-20); Calcium 8.9 mg/dL (8.6-10.3); Carbon Dioxide 17 mEq/L (23-29); Chloride 105 mEq/L (98-107); Glucose 132 mg/dL (70-105); Potassium 4.2 mEq/L (3.5-5.1); eGFR For Non-African Americans > 60 (> 60)
[2018-07-19 05:40] LABS: Osmolality,Calculated 287 (280-300); Sodium 138 mEq/L (136-145)
[2018-07-19] MEDS: Aspirin 81 MG TAB.CHEW PO SCH (08:47)
--- NOTE | 2018-07-19 09:26 | Electrocardiograph Report ---
[address] [address] Test Date: 2018-07-18 Pat Name: Nam Terrazas Department: [id number] Room: 3B Gender: M Corpsman: : 1960 Requested By: Mesfin Herrmann Order Number: [id number] Reading MD: Stew Baer Measurements Intervals [place] Rate: 78 P: 75 CT: 154 QRS: 61 QRSD: 119 T: 63 QT: 381 QTc: 434 Interpretive Statements Sinus rhythm Electronically Signed On 07-19-2018 9:25:00 EDT by Stew Baer
--- NOTE | 2018-07-19 09:38 | Electrocardiograph Report ---
[address] [address] Test Date: 2018-07-18 Pat Name: Nam Terrazas Department: 113 Room: 3B Gender: M [employer] Field Supervisor: : 1960 Requested By: Fernie Johns Order Number: [id number] Reading MD: Stew Baer Measurements Intervals [place] Rate: 54 P: 73 FL: 186 QRS: 35 QRSD: 121 T: 49 QT: 429 QTc: 416 Interpretive Statements SINUS BRADYCARDIA Electronically Signed On 07-19-2018 9:36:33 EDT by Stew Baer
--- NOTE | 2018-07-19 11:21 | Internal Med Progress Note ---
Hospitalist Progress Note - Encounter Date of Encounter: 07/19/18 Time of Encounter: 11:19 - Subjective Interval History: Patient seen and examined in the room. He denies any chest pain currently. He has no palpitation, syncope, lightheadedness, or shortness breath. He is concerned when the cardiology will see him. - Exam Vitals: Temp Pulse Resp BP Pulse Ox 97.6 F 90 17 134/82 91 07/19/18 08:14 07/19/18 08:14 07/19/18 08:14 07/19/18 08:14 07/19/18 08:14 Exam: PHYSICAL EXAMINATION: GENERAL APPEARANCE: The patient is alert, oriented and in no acute distress. HEENT: Head is normocephalic. The sinuses are nontender. Pupils are equal and reactive. The nares are patent. Oropharynx clear without lesions. NECK: Supple without lymphadenopathy. HEART: Regular rate and rhythm. LUNGS: No crackles or wheezes are heard. ABDOMEN: Soft, nontender, nondistended with good bowel sounds heard. Inguinal area is normal. EXTREMITIES: Without cyanosis, clubbing or edema. NEUROLOGICAL: Gross nonfocal. SKIN: Warm and dry without any rash. - - Assessment and Plan (1) Chest pain Current Visit: Yes Status: Acute Assessment and Plan: 58-year-old male with past medical history of CAD and recent stent placement, hypertension, and chronic back pain presented with chest pain and back pain. Troponin was negative for 2 sets, EKG has no acute ST-T change. Echo was repeated which showed normal LV ejection fraction, moderate LV DD. Stress test was ordered, cardiology was consulted. (2) Hypertension Current Visit: No Status: Chronic Assessment and Plan: Blood pressure currently well controlled, continue home medications. (3) CAD (coronary artery disease) Current Visit: No Status: Chronic Assessment and Plan: Patient recent had 2 stents placed, will continue home medication including aspirin and Plavix. (4) Chronic back pain Current Visit: No Status: Chronic Assessment and Plan: Pain control, follow-up with PCP as outpatient. (5) DVT prophylaxis Current Visit: Yes Status: Acute Assessment and Plan: Heparin subcutaneous. - Time Spent with Patient Total time spent is greater than 50% in coordination of care (as documented) at patient's floor/unit and/or counseling patient: Greater than 35 minutes Plan of Care Discussed with: patient Internal Medicine: Result - Labs CBC & Chem 7: 07/19/18 04:24 07/19/18 04:24 Labs: Short CBC 07/18/18 07/19/18 Range/Units 15:30 04:24 WBC 5.4 6.8 (4.3-11.1) K/mcL Hgb 14.4 13.4 (12.9-16.9) g/dL Hct 42.8 40.0 (37.5-50.1) % Plt Count 251 212 (140-400) K/mcL Neutrophils # 3.7 (1.6-8.9) K/mcL BMP 07/18/18 07/19/18 15:30 04:24 Sodium 140 138 Potassium 3.8 4.2 Chloride 105 105 Carbon Dioxide 32 H 17 L BUN 9 10 Creatinine 0.83 0.87 Glucose 100 132 H Calcium 9.6 8.9 Cardiac Enzymes 07/18/18 07/18/18 07/19/18 Range/Units 15:30 22:08 07:20 Troponin I < 0.03 < 0.03 < 0.03 (< 0.04) ng/mL - Impressions Impressions Chest X-Ray 07/18/18 15:39 IMPRESSION: No acute cardiopulmonary process. D/ / Patrick Perez MD / Patrick Perez MD Interpreting Provider: Patrick Perez MD Knee X-Ray 07/18/18 15:40 IMPRESSION: Status post left total knee arthroplasty. No radiographic evidence of hardware complication. Small suprapatellar effusion. D/ / 07/18/2018 16:31:30 Patrick Perez MD / [place] Interpreting Provider: Patrick Perez MD CT Dissection 07/18/18 16:24 IMPRESSION: 1. No acute vascular abnormality. No aneurysm or dissection. 2. Calcific atherosclerosis aorta and coronary arteries. 3. Mild intra and extrahepatic bile duct dilatation status post cholecystectomy typical of reservoir effect. 4. Benign right hepatic lobe cavernous hemangiomas require no additional evaluation or follow-up. D/ / Vaughn Caicedo / Vaughn Caicedo Interpreting Provider: Vaughn Caicedo Lumbar Spine CT 07/18/18 16:24 IMPRESSION: No acute osseous abnormality. Postsurgical changes from L3-L4 through L5-S1 laminectomies and L5-S1 discectomy. D/ / 07/18/2018 17:40:49 Patrick Perez MD / [email or web address] Interpreting Provider: Patrick Perez MD Echocardiogram 07/19/18 09:00 Impressions: LVEF 55%. Moderate left ventricular diastolic dysfunction. Normal right ventricular structure and function. Mild aortic regurgitation. Mild mitral regurgitation. Mild tricuspid regurgitation. No pulmonary hypertension. Left Ventricular Wall Motion: Rest Echo Findings All wall segments showed normal motion. Findings: Study Quality * Technically adequate exam. ECG Findings * Sinus bradycardia. Left Ventricle * LVEF 55%. * Normal LV chamber size, wall thickness and function. * Moderate left ventricular diastolic dysfunction. Right Ventricle * Normal right ventricular structure and function. Left Atrium * Mildly dilated left atrium. Right Atrium * Mildly dilated right atrium. Aortic Valve * Mild aortic regurgitation. * Aortic valve not well visualized. * No aortic stenosis. Mitral Valve * Normal mitral valve structure. * No mitral stenosis. * Mild mitral regurgitation. Tricuspid Valve * Normal tricuspid valve structure. * Mild tricuspid regurgitation. * Estimated RA pressure is 8 mmHg. * Estimated RVSP is 31 mmHg. * No pulmonary hypertension. Pulmonic Valve * Pulmonic valve is not well visualized. * No pulmonic stenosis. * No pulmonic regurgitation. Pulmonary Artery * Pulmonary artery not well visualized. Aorta * Normally sized aortic root. * Proximal ascending thoracic aorta not well visualized. Pericardium * There is no pericardial effusion present. Interatrial Septum * No evidence of PFO by color Doppler. IVC * The IVC is not dilated. * < 50% respiratory change. Consult Discharge Plan - Plan Referrals: Carlos Kearns MD [Primary Care Provider] - 07/24/18 8:00 am (1) Chest pain Qualifiers: Chest pain type: unspecified Qualified Code(s): R07.9 - Chest pain, unspecified (2) Hypertension Qualifiers: Hypertension type: essential hypertension Qualified Code(s): I10 - Essential (primary) hypertension (3) CAD (coronary artery disease) Qualifiers: Coronary Disease-Associated Artery/Lesion type: [place] artery [place] vs. transplanted heart: [place] heart Associated angina: angina presence unspecified Qualified Code(s): I25.10 - Atherosclerotic heart disease of [place] coronary artery without angina pectoris (4) Chronic back pain Qualifiers: Back pain location: low back pain Back pain laterality: unspecified Sciatica presence: unspecified whether sciatica present Qualified Code(s): M54.5 - Low back pain; G89.29 - Other chronic pain
--- NOTE | 2018-07-19 12:03 | Cardiology Consult Note ---
Date of Encounter: 07/19/18 Time of Encounter: 11:30 Assessment and Plan (1) Chest pain Current Visit: Yes Status: Acute Patient presented with atypical chest pain symptoms. Troponin negative x3. No ischemic ECG changes present. Additionally c/o back and knee pain. [facility] 02/2018--s/p successful PTCA/ANDREA to mLAD; otherwise no significant CAD. TTE this admission shows preserved LVEF, 55% with normal wall motion. Continue asa, statin, BB, plavix. BP hypertensive upon exam, will optimize nitrates. No further inpt testing at this time. Recommend close outpatient follow-up with Cardiology. Qualifiers: Chest pain type: precordial pain Qualified Code(s): R07.2 - Precordial pain (2) CAD (coronary artery disease) Current Visit: No Status: Chronic Hx of CAD s/p PCI to mLAD 02/2018. Continue asa, statin, BB. Uninterrupted DAPT x1 year following ANDREA. Plan as above. Qualifiers: Coronary Disease-Associated Artery/Lesion type: [place] artery [place] vs. transplanted heart: [place] heart Associated angina: without angina Qualified Code(s): I25.10 - Atherosclerotic heart disease of [place] coronary artery without angina pectoris Discussion w patient/family: The assessment and plan as outlined above was discussed with the patient and/or family members who expressed understanding and agreement. All questions were answered. Thank you for involving us in the care of your patient. Please call with any questions. The patient will be discussed and reviewed with Dr. Oates; changes to be made accordingly. History of Present Illness Consult date: 07/19/18 Requesting physician: Bk Hughes Consult reason: Chest pain Chief complaint: Chest pain/back pain/knee pain History of present illness: Mr. Terrazas is a 58 year old male with PMHx significant of CAD s/p PCI (LAD 02/2018), HTN, HLD, and osteoarthritis who presented to the ED with complaints of chest pain. Additionally, he complaints of left knee back and associated back pain--currently evaluation by Dr. Galindo in the outpatient setting. He reports chest discomfort with associated arm heaviness that comes and goes--started last week. He reports he saw his primary Exhaust Emissions Inspector, Dr. Israel and was told to continue current medications. Pain has been nearly constant over the past week and nothing seems to make it better or worse. Upon arrival to the ED, troponin was negative x3. No ischemic ECG changes were present. Past Med Surg Social Fam HX - Past Medical History Attestation: Yes The following information was validated with the patient. Source: patient Medical history: GERD, hyperlipidemia, thyroid disease Additional medical history: CHRONIC LOW BACK PAIN, HYPERURICEMIA, INSOMNIA, SLEEP APNEA, NEUROGENIC BLADDER, ED, HEARING LOSS, NOCTURIA, COLON POLYPS, gout Psychiatric history: anxiety, depression - Past Surgical History Surgical History: cholecystectomy, herniorrhaphy, knee replacement Additional surgical history: RETINAL DETACHMENT, SINUS SURGERYx2 , LHC, COLONOSCOPY, bilat total knee, 6 back pain . - Social History Smoking Status: Never smoker Smokeless Tobacco Status: No Alcohol use: none Drug use: none - Family History Father Living Status: Hx Family Cardiac Disorders: Yes (multiple DC) Hx Family Neuromuscular Disorders: Yes (stroke) Brother Living Status: Still Living Hx Family Cardiac Disorders: (multiplle DC) Mother Living Status: Hx Family Respiratory Disorders: Yes (copd) Medications and Allergies Levothyroxine [Synthroid] 88 mcg PO 0630 11/04/17 [History] Aspirin 81 mg PO DAILY #30 tab.chew 03/04/18 [Rx] Atorvastatin [Lipitor] 40 mg PO HS #30 tablet 03/04/18 [Rx] Clopidogrel [Plavix] 75 mg PO DAILY #30 tablet 03/04/18 [Rx] Isosorbide MONOnitrate (24 HR) [Imdur] 30 mg PO DAILY 07/18/18 [History] Allergy/AdvReac Type Severity Reaction Status Date / Time gabapentin Allergy Rash Verified 03/03/18 06:47 acetaminophen [From Vicodin] AdvReac Rash Verified 03/03/18 06:47 hydrocodone [From Vicodin] AdvReac Rash Verified 03/03/18 06:47 All Systems Review: The remainder of the systems were reviewed and are negative - Cardiovascular Cardiovascular: as per HPI Physical Examination Vital Signs, Last 4 Hours Temp Pulse Resp BP Pulse Ox 07/19/18 08:14 97.6 F 90 17 134/82 91 General: Conversant, No Apparent Distress HEENT: Atraumatic, Normocephaly, Mucus Membranes Moist Neck: No JVD, Normal carotid pulses Cardiac: Reg Rate and Rhythm, Normal S1 and S2, No Murmur Lungs: Normal Breath Sounds, No Wheeze, Rales, Rhonchi Neuro: Alert and responsive, No focal deficits noted Abdomen: Soft, Non-Tender Skin: No rashes noted on visualized skin Musculoskeletal: No Chest Wall Tenderness Extremities: No Clubbing, No Cyanosis, No Edema, Normal Pulses Results 07/19/18 04:24 07/19/18 04:24 Lab Results 07/18/18 07/18/18 07/18/18 15:30 15:30 15:30 WBC 5.4 Hgb 14.4 Hct 42.8 Plt Count 251 Sodium 140 Potassium 3.8 Chloride 105 Carbon Dioxide 32 H BUN 9 Creatinine 0.83 Glucose 100 Calcium 9.6 Troponin I < 0.03 B-Natriuretic Peptide 43 Lipase 26 TSH 4.103 07/18/18 07/19/18 07/19/18 22:08 04:24 04:24 WBC 6.8 Hgb 13.4 Hct 40.0 Plt Count 212 Sodium 138 Potassium 4.2 Chloride 105 Carbon Dioxide 17 L BUN 10 Creatinine 0.87 Glucose 132 H Calcium 8.9 Troponin I < 0.03 B-Natriuretic Peptide Lipase TSH 07/19/18 07:20 WBC Hgb Hct Plt Count Sodium Potassium Chloride Carbon Dioxide BUN Creatinine Glucose Calcium Troponin I < 0.03 B-Natriuretic Peptide Lipase TSH Active Medications Aspirin (Aspirin) 81 mg PO DAILY [facility] Stop: 01/18/19 09:01 Last Admin: 07/19/18 08:47 Dose: 81 mg Documented by: Atorvastatin Calcium (Lipitor) 40 mg PO HS [facility] Stop: 01/18/19 21:01 Clopidogrel Bisulfate (Plavix) 75 mg PO DAILY [facility] Stop: 01/18/19 09:01 Last Admin: 07/19/18 08:47 Dose: 75 mg Documented by: Heparin Sodium (Porcine) (Heparin) 5,000 unit SQ Q12HCO [facility] Stop: 01/18/19 06:01 Last Admin: 07/19/18 05:27 Dose: 5,000 unit Documented by: Isosorbide Mononitrate (Imdur) 60 mg PO DAILY [facility] Stop: 01/18/19 12:16 Last Admin: 07/19/18 12:25 Dose: 60 mg Documented by: Levothyroxine Sodium (Synthroid) 88 mcg PO 0630 [facility] Stop: 01/18/19 06:31 Last Admin: 07/19/18 05:28 Dose: 88 mcg Documented by: Morphine Sulfate (Morphine Sulfate) 1 mg IVP Q1H PRN; Protocol PRN Reason: Chest Pain Stop: 01/17/19 21:38 Last Admin: 07/19/18 05:35 Dose: 1 mg Documented by: Naloxone HCl (Narcan) 0.4 mg IVP Q2MPRN PRN PRN Reason: SEE COMMENTS Stop: 01/17/19 21:36 Nitroglycerin (Nitroglycerin) 0.4 mg SL Q5MIN PRN PRN Reason: Chest Pain Stop: 01/17/19 20:48 Last Admin: 07/18/18 20:55 Dose: 0.4 mg Documented by: Promethazine HCl (Phenergan) 12.5 mg IVP Q6HR PRN PRN Reason: Nausea And Vomiting Stop: 01/17/19 21:36 - Imaging and Cardiology Echo: report reviewed Cardiac cath: report reviewed Other Results: 12 hour tele: avg HR=56 SB. - EKG Interpretation EKG results cardiology: personally reviewed, normal ECG Consult Discharge Plan - Plan Referrals: aCrlos Kearns MD [Primary Care Provider] - 07/24/18 8:00 am
[2018-07-19] MEDS: Isosorbide MONOnitrate (24 HR) 60 MG TAB.ER.24H PO SCH (12:25)
[2018-07-20] MEDS: *HR* Heparin 5,000 UNIT/ML VIAL SQ SCH (06:33)
[2018-07-20 08:11] VITALS: BP 137/73
[2018-07-20] MEDS: Isosorbide MONOnitrate (24 HR) 60 MG TAB.ER.24H PO SCH (08:20)
[2018-07-20] MEDS: Aspirin 81 MG TAB.CHEW PO SCH (08:20)
--- NOTE | 2018-07-20 09:55 | Discharge Summary ---
- NOTES TO OUTPATIENT PROVIDER Notes to Outpatient Provider: f/u with PCP within 2 weeks. f/u with cardiology within 4 weeks. Date of Encounter: 07/20/18 Time of Encounter: 09:53 - Discharge Diagnosis (1) Chest pain Priority: Primary Status: Acute Qualifiers: Chest pain type: precordial pain Qualified Code(s): R07.2 - Precordial pain (2) Hypertension Priority: Secondary Status: Chronic Qualifiers: Hypertension type: essential hypertension Qualified Code(s): I10 - Essential (primary) hypertension (3) CAD (coronary artery disease) Priority: Secondary Status: Chronic Qualifiers: Coronary Disease-Associated Artery/Lesion type: [place] artery [place] vs. transplanted heart: [place] heart Associated angina: without angina Qualified Code(s): I25.10 - Atherosclerotic heart disease of [place] coronary artery without angina pectoris (4) Chronic back pain Priority: Secondary Status: Chronic Qualifiers: Back pain location: low back pain Back pain laterality: unspecified Sciatica presence: unspecified whether sciatica present Qualified Code(s): M54.5 - Low back pain; G89.29 - Other chronic pain (5) DVT prophylaxis Priority: Primary Status: Acute Hospital course: Mr. Terrazas is a 58 year old male. Patient presented to the emergency room with chest pain, back pain and left knee pain. He has significant history of cardiac stent placed back in February, and he had similar pain this at that time. This chest pain he says is worse than that pain however and has been progressively worsening over the last few hours. He has also had associated bilateral hand weakness as well. The pain is located in the center of his chest and does not radiate. He came to the emergency room for further evaluation. Further workup showed negative serial troponin, unremarkable EKG without acute ST-T change, and unremarkable echocardiogram which showed normal ejection fraction with moderate LV DD. Cardiology was consulted, recommended medical management, Imdur doses was uptitrated per cardiology recommendation. On the discharge today, patient vital signs were stable, he is chest pain-free. He is discharged home today, was instructed to continue take medications including aspirin and Plavix, continue follow-up with PCP and cardiology as scheduled. Discharge discussed with: patient Time spent discussing smoking cessation with patient: more than 10 minutes - Time Spent with Patient Total time spent providing and/or coordinating discharge services: Time spent: Greater than 30 minutes - Discharge Medications Prescriptions: New Isosorbide MONOnitrate (24 HR) [Imdur] 60 mg PO DAILY #30 tab.er.24h Continued Levothyroxine [Synthroid] 88 mcg PO 0630 Aspirin 81 mg PO DAILY #30 tab.chew Atorvastatin [Lipitor] 40 mg PO HS #30 tablet Clopidogrel [Plavix] 75 mg PO DAILY #30 tablet Discontinued Isosorbide MONOnitrate (24 HR) [Imdur] 30 mg PO DAILY Home Medications: Levothyroxine [Synthroid] 88 mcg PO 0630 11/04/17 [History] Aspirin 81 mg PO DAILY #30 tab.chew 03/04/18 [Rx] Atorvastatin [Lipitor] 40 mg PO HS #30 tablet 03/04/18 [Rx] Clopidogrel [Plavix] 75 mg PO DAILY #30 tablet 03/04/18 [Rx] Isosorbide MONOnitrate (24 HR) [Imdur] 60 mg PO DAILY #30 tab.er.24h 07/20/18 [Rx] Allergies/Adverse Reactions: Allergy/AdvReac Type Severity Reaction Status Date / Time gabapentin Allergy Rash Verified 03/03/18 06:47 acetaminophen [From Vicodin] AdvReac Rash Verified 03/03/18 06:47 hydrocodone [From Vicodin] AdvReac Rash Verified 03/03/18 06:47 Date of admission: 07/18/18 19:32 Primary care physician: Carlos Kearns Consults: 07/19/18 08:04 Consult to Cardiology [CONS] Routine Comment: Consulting Provider: Cardiology Yadira Reason for Consult: CP Call Completed: Yes Anticipated date of discharge: 07/20/18 - Constitutional Vitals: Temp Pulse Resp BP Pulse Ox 98.1 F 68 17 137/73 94 07/20/18 07:59 07/20/18 07:59 07/20/18 07:59 07/20/18 07:59 07/20/18 07:59 General appearance: Present: cooperative, mild distress, A&O X 3, pleasant, answers questions appropriately Exam: PHYSICAL EXAMINATION: GENERAL APPEARANCE: The patient is alert, oriented and in no acute distress. HEENT: Head is normocephalic. The sinuses are nontender. Pupils are equal and reactive. The nares are patent. Oropharynx clear without lesions. NECK: Supple without lymphadenopathy. HEART: Regular rate and rhythm. LUNGS: No crackles or wheezes are heard. ABDOMEN: Soft, nontender, nondistended with good bowel sounds heard. Inguinal area is normal. EXTREMITIES: Without cyanosis, clubbing or edema. NEUROLOGICAL: Gross nonfocal. SKIN: Warm and dry without any rash. - - Patient Status Disposition: Home, Self-Care Condition: Fair Functional capacity at discharge: independent ambulation Overall status at discharge: patient is progressing back to baseline - Discharge Instructions Follow Up With: Carlos Kearns MD [Primary Care Provider] - 07/24/18 8:00 am - Diet and Activity Activity: increase activity as tolerated Diet: low fat, low cholesterol, low salt diet
== END 2018-07-20 10:38 | disposition home or self-care (01) ==
LOC: 3BNU 15:12 → EMEROOARM 15:12 → 3BNU 21:12
PROVIDERS: ADMIT Internal Medicine Nephrology; ATTEND Internal Medicine Nephrology

== ENCOUNTER 2019-02-22 10:22 | Observation (INO) ==
[2019-02-22 11:20] LABS: Basophils % 0.5 %; Eosinophils % 0.5 %; Hematocrit 43.5 % (37.5-50.1); Hemoglobin 14.9 g/dL (12.9-16.9); Immature Granulocytes % 0.5 % (0-4); Lymphocytes # 0.8 K/mcL (0.6-4.6); Lymphocytes % 14.2 %; Mean Corpuscular HGB Conc 34.3 g/dL (31.6-35.5); Mean Corpuscular Hemoglobin 30.4 pg (28.0-33.3); Mean Corpuscular Volume 88.8 fL (83.0-100.0); Mean Platelet Volume 8.4 fL (9.4-12.4); Monocytes # 0.5 K/mcL (0.0-1.3); Monocytes % 8.7 %; Neutrophils # 4.4 K/mcL (1.6-8.9); Platelet Count 295 K/mcL (140-400); Red Cell Distribution Width 12.1 % (11.5-14.5); Segmented Neutrophils % 75.6 %; White Blood Count 5.9 K/mcL (4.3-11.1)
[2019-02-22] MEDS ORDERED: Aspirin 325 MG TABLET PO ONE (11:22)
[2019-02-22 11:29] LABS: Prothrombin Time 11.8 Seconds (9.4-12.1)
[2019-02-22] MEDS: Nitroglycerin 0.4 MG TAB.SUBL SL SCH ×3 (11:32→12:40)
[2019-02-22 11:46] LABS: BUN/Creatinine Ratio 9 (6-26); Blood Urea Nitrogen 9 mg/dL (6-20); Carbon Dioxide 30 mEq/L (23-29); Chloride 101 mEq/L (98-107); Glucose 91 mg/dL (70-105); Osmolality,Calculated 290 (280-300); Potassium 3.7 mEq/L (3.5-5.1); Sodium 141 mEq/L (136-145); Troponin I < 0.03 ng/mL (< 0.04); eGFR For African Americans > 60 (> 60); eGFR For Non-African Americans > 60 (> 60)
[2019-02-22 12:06] LABS: Thyroid Stimulating Hormone 7.987 mcIU/mL (0.340-5.600)
[2019-02-22] MEDS ORDERED: Ondansetron ODT 4 MG TAB.RAPDIS SL PRN (14:18)
[2019-02-22] MEDS ORDERED: Naloxone 0.4 MG/ML INJ IVP PRN (14:18)
[2019-02-22] MEDS ORDERED: Nitroglycerin 0.4 MG TAB.SUBL SL PRN (15:48)
[2019-02-23 05:59] LABS: Basophils % 0.4 %; Eosinophils # 0.1 K/mcL (0.0-0.6); Eosinophils % 1.7 %; Hematocrit 37.8 % (37.5-50.1); Immature Granulocytes % 0.4 % (0-4); Lymphocytes # 1.3 K/mcL (0.6-4.6); Lymphocytes % 17.4 %; Mean Corpuscular HGB Conc 33.6 g/dL (31.6-35.5); Mean Corpuscular Volume 92.2 fL (83.0-100.0); Mean Platelet Volume 8.9 fL (9.4-12.4); Monocytes # 0.7 K/mcL (0.0-1.3); Monocytes % 9.9 %; Neutrophils # 5.1 K/mcL (1.6-8.9); Platelet Count 243 K/mcL (140-400); Red Cell Distribution Width 12.1 % (11.5-14.5); Segmented Neutrophils % 70.2 %; White Blood Count 7.3 K/mcL (4.3-11.1)
[2019-02-23 06:02] LABS: INR 0.9; Prothrombin Time 10.7 Seconds (9.4-12.1)
[2019-02-23 06:05] LABS: Hemoglobin 12.7 g/dL (12.9-16.9)
[2019-02-23 06:17] LABS: BUN/Creatinine Ratio 17 (6-26); Blood Urea Nitrogen 17 mg/dL (6-20); Calcium 9.3 mg/dL (8.6-10.3); Carbon Dioxide 29 mEq/L (23-29); Chloride 103 mEq/L (98-107); Glucose 108 mg/dL (70-105); Osmolality,Calculated 294 (280-300); Potassium 3.9 mEq/L (3.5-5.1); Sodium 141 mEq/L (136-145); eGFR For African Americans > 60 (> 60); eGFR For Non-African Americans > 60 (> 60)
[2019-02-23] MEDS ORDERED: Aspirin Enteric Coated 81 MG Tablet PO SCH (09:00)
[2019-02-23] MEDS ORDERED: Regadenoson 0.4 MG/5 ML SYRINGE IVP ONE (10:42)
[2019-02-23 15:16] VITALS: BP 162/84
[2019-02-23] MEDS ORDERED: carvediloL 6.25 MG TABLET PO SCH (17:00)
[2019-02-23] MEDS ORDERED: Ranolazine 500 MG TAB.ER.12H PO SCH (21:00)
== END 2019-02-23 16:08 | disposition home or self-care (01) ==
LOC: 3BNU 10:22 → EMEROOARM 10:22 → SUATTDRO 13:54 → 3BNU 14:22
PROVIDERS: ADMIT Student in an Organized Health Care Education/Training Program; ATTEND Student in an Organized Health Care Education/Training Program

== ENCOUNTER 2019-04-04 11:09 | Inpatient (IN) ==
[~2019-04-04 11:09] MED LIST: Total Joint Mixture (50 ml) IR ONE
[2019-04-04] MEDS ORDERED: Albuterol 2.5 MG/3 ML NEBULIZER IH PRN (11:31)
[2019-04-04] MEDS ORDERED: CeFAZolin Syr 2,000MG/20 ML 2,000 MG/20 ML SYRINGE IVPB ONE (11:31)
[2019-04-04] MEDS ORDERED: Pregabalin 75 MG CAPSULE PO ONE (11:38)
[2019-04-04] MEDS ORDERED: Famotidine 20 MG/2 ML VIAL IVP ONE (11:39)
[2019-04-04] MEDS ORDERED: Acetaminophen IV 1,000 MG/100 ML INFUS..BTL IVPB ONE (11:39)
[2019-04-04] MEDS ORDERED: *HR* HYDROmorphone 2 MG TABLET PO PRN (11:40)
[2019-04-04] MEDS ORDERED: *HR* Labetalol 20 MG/4 ML SYRINGE IVP PRN (11:40)
[2019-04-04] MEDS ORDERED: *HR* OxyCODONE Immed Rel 5 MG TABLET PO PRN (11:40)
[2019-04-04] MEDS ORDERED: *HR* Promethazine 25 MG/ML VIAL IVP PRN ×2 (11:40→16:45)
[2019-04-04] MEDS ORDERED: Ringers Solution, Lactated 1,000 ML IVC SCH ×2 (11:45→16:45)
[2019-04-04] MEDS ORDERED: Ondansetron 4 MG/2 ML VIAL ONE (12:10)
[2019-04-04] MEDS ORDERED: Dexamethasone 4 MG/ML VIAL ONE (12:10)
[2019-04-04] MEDS ORDERED: Lidocaine -MPF 2% 2 ML VIAL ONE ×2 (12:10→12:12)
[2019-04-04] MEDS ORDERED: *HR* Midazolam HCl 2 MG/2 ML VIAL ONE (12:11)
[2019-04-04] MEDS ORDERED: Propofol 500 MG/50 ML INFUS..BTL ONE (12:14)
[2019-04-04] MEDS ORDERED: *HR* FentaNYL (PF) 250 MCG/5 ML VIAL ONE (12:59)
[2019-04-04] MEDS ORDERED: Lidocaine HCL 4 ML Topical Solution (Laryng-O-Jet Kit Sterile Pak) TP ONE (13:34)
[2019-04-04] MEDS ORDERED: EPHEDrine 50 MG/ML VIAL ONE (13:49)
[2019-04-04] MEDS ORDERED: Neostigmine Methylsulfate 3 MG/3 ML SYRINGE ONE (14:50)
[2019-04-04] MEDS: *HR* HYDROmorphone (PF) 1 MG/ML SYRINGE IVP PRN ×2 (15:20→15:44)
[2019-04-04] MEDS ORDERED: Ondansetron 4 MG/2 ML VIAL IVP PRN (16:45)
[2019-04-04] MEDS ORDERED: MOM Conc 10 ML UD.LIQ PO PRN (16:45)
[2019-04-04] MEDS ORDERED: Naloxone 0.4 MG/ML INJ IVP PRN (16:45)
[2019-04-04] MEDS ORDERED: Sennosides 8.6 MG TABLET PO PRN (16:45)
[2019-04-04 17:02] LABS: Hematocrit 34.1 % (37.5-50.1)
[2019-04-04 17:03] LABS: Hemoglobin 11.5 g/dL (12.9-16.9)
[2019-04-04] MEDS: Ascorbic Acid 500 MG TABLET PO SCH (18:00)
[2019-04-04] MEDS: ceFAZolin 2,000 MG in 0.9 % Sodium Chloride 100 ML IVPB SCH ×2 (18:00→23:14)
[2019-04-04] MEDS: *HR* OxyCODONE Immed Rel 5 MG TABLET PO PRN ×2 (18:00→23:23)
[2019-04-04] MEDS ORDERED: Dextrose Gel 15 GM/37.5 ML TUBE PO PRN ×2 (18:38)
[2019-04-04] MEDS ORDERED: D5% in Water 1,000 ML IVC PRN (18:38)
[2019-04-04] MEDS ORDERED: *HR* Dextrose 50 % in Water (Syg) 50 ML SYRINGE IVP PRN (18:38)
[2019-04-04] MEDS: *HR* OxyCODONE/APAP 5/325 TABLET PO PRN (20:40)
[2019-04-04] MEDS: Insulin LISPRO 300 UNITS/3 ML VIAL SQ SCH (21:09)
[2019-04-05] MEDS: *HR* OxyCODONE/APAP 5/325 TABLET PO PRN (03:36)
[2019-04-05 04:58] LABS: Basophils % 0.2 %; Eosinophils % 0.1 %; Hematocrit 31.8 % (37.5-50.1); Hemoglobin 10.9 g/dL (12.9-16.9); Immature Granulocytes % 0.5 % (0-4); Lymphocytes # 0.6 K/mcL (0.6-4.6); Lymphocytes % 4.8 %; Mean Corpuscular HGB Conc 34.3 g/dL (31.6-35.5); Mean Corpuscular Hemoglobin 30.8 pg (28.0-33.3); Mean Corpuscular Volume 89.8 fL (83.0-100.0); Mean Platelet Volume 8.9 fL (9.4-12.4); Monocytes % 7.5 %; Platelet Count 275 K/mcL (140-400); Red Blood Count 3.54 M/mcL (4.19-5.50); Red Cell Distribution Width 12.4 % (11.5-14.5); Segmented Neutrophils % 86.9 %
[2019-04-05 04:59] LABS: White Blood Count 12.6 K/mcL (4.3-11.1)
[2019-04-05 05:20] LABS: BUN/Creatinine Ratio 11 (6-26); Blood Urea Nitrogen 12 mg/dL (6-20); Calcium 8.6 mg/dL (8.6-10.3); Carbon Dioxide 28 mEq/L (23-29); Chloride 97 mEq/L (98-107); Glucose 207 mg/dL (70-105); Osmolality,Calculated 284 (280-300); Potassium 3.6 mEq/L (3.5-5.1); Sodium 134 mEq/L (136-145); eGFR For African Americans > 60 (> 60); eGFR For Non-African Americans > 60 (> 60)
[2019-04-05] MEDS: Ketorolac 30 MG/ML VIAL IVP PRN (06:39)
[2019-04-05] MEDS: Insulin LISPRO 300 UNITS/3 ML VIAL SQ SCH ×4 (08:24→20:07)
[2019-04-05] MEDS: *HR* OxyCODONE Immed Rel 5 MG TABLET PO PRN ×3 (08:59→19:51)
[2019-04-05] MEDS: Ascorbic Acid 500 MG TABLET PO SCH ×2 (08:59→16:02)
[2019-04-05] MEDS: Multivit/Ca/Min/Fe/FA 1 TAB TABLET PO SCH (09:00)
[2019-04-05] MEDS ORDERED: Aspirin Enteric Coated 81 MG Tablet PO SCH (09:00)
[2019-04-05] MEDS: Aspirin Enteric Coated 81 MG Tablet PO SCH (12:59)
[2019-04-06] MEDS: *HR* OxyCODONE Immed Rel 5 MG TABLET PO PRN (02:31)
[2019-04-06 02:54] LABS: Basophils % 0.2 %; Eosinophils # 0.2 K/mcL (0.0-0.6); Eosinophils % 2.8 %; Hematocrit 29.9 % (37.5-50.1); Hemoglobin 9.9 g/dL (12.9-16.9); Immature Granulocytes % 0.6 % (0-4); Lymphocytes # 0.8 K/mcL (0.6-4.6); Mean Corpuscular HGB Conc 33.1 g/dL (31.6-35.5); Mean Corpuscular Hemoglobin 30.9 pg (28.0-33.3); Mean Corpuscular Volume 93.4 fL (83.0-100.0); Mean Platelet Volume 9.1 fL (9.4-12.4); Monocytes # 0.9 K/mcL (0.0-1.3); Monocytes % 11.4 %; Neutrophils # 6.1 K/mcL (1.6-8.9); Platelet Count 207 K/mcL (140-400); Red Cell Distribution Width 12.8 % (11.5-14.5); White Blood Count 8.2 K/mcL (4.3-11.1)
[2019-04-06 03:05] LABS: BUN/Creatinine Ratio 9 (6-26); Blood Urea Nitrogen 9 mg/dL (6-20); Calcium 8.4 mg/dL (8.6-10.3); Carbon Dioxide 29 mEq/L (23-29); Chloride 99 mEq/L (98-107); Glucose 120 mg/dL (70-105); Osmolality,Calculated 280 (280-300); Potassium 3.7 mEq/L (3.5-5.1); Sodium 135 mEq/L (136-145); eGFR For African Americans > 60 (> 60); eGFR For Non-African Americans > 60 (> 60)
[2019-04-06 04:17] VITALS: BP 172/82
[2019-04-06] MEDS: Ketorolac 30 MG/ML VIAL IVP PRN (04:23)
[2019-04-06] MEDS: Insulin LISPRO 300 UNITS/3 ML VIAL SQ SCH (07:42)
[2019-04-06] MEDS: Ascorbic Acid 500 MG TABLET PO SCH (07:43)
[2019-04-06] MEDS: Multivit/Ca/Min/Fe/FA 1 TAB TABLET PO SCH (07:43)
[2019-04-06] MEDS: Aspirin Enteric Coated 81 MG Tablet PO SCH (07:43)
== END 2019-04-06 10:10 | disposition home or self-care (01) | DRG 467 ==
LOC: SAMDAY 11:09 → 3NENU 11:09 → UNDODISOB 04-06 10:10
PROVIDERS: ADMIT Orthopaedic Surgery; ATTEND Orthopaedic Surgery

== ENCOUNTER 2021-11-18 12:46 | Inpatient (IN) ==
[2021-11-18] MEDS ORDERED: Iopamidol - 370 500 ML MLS IVP ONE (14:04)
[2021-11-18 14:09] LABS: Basophils % 0.2 %; Eosinophils # 0.2 K/mcL (0.0-0.6); Eosinophils % 1.7 %; Immature Granulocytes % 0.8 % (0-4); Lymphocytes # 0.8 K/mcL (0.6-4.6); Lymphocytes % 7.8 %; Mean Corpuscular HGB Conc 33.3 g/dL (31.6-35.5); Mean Corpuscular Hemoglobin 30.5 pg (28.0-33.3); Mean Corpuscular Volume 91.5 fL (83.0-100.0); Mean Platelet Volume 8.8 fL (9.4-12.4); Monocytes # 0.7 K/mcL (0.0-1.3); Monocytes % 7.1 %; Neutrophils # 8.7 K/mcL (1.6-8.9); Platelet Count 280 K/mcL (140-400); Red Blood Count 4.59 M/mcL (4.19-5.50); Red Cell Distribution Width 12.3 % (11.5-14.5); Segmented Neutrophils % 82.4 %; White Blood Count 10.5 K/mcL (4.3-11.1)
[2021-11-18 14:26] LABS: BUN/Creatinine Ratio 14 (6-26); Blood Urea Nitrogen 13 mg/dL (8-23); Calcium 9.6 mg/dL (8.6-10.3); Carbon Dioxide 29 mEq/L (23-29); Chloride 103 mEq/L (98-107); Glucose 99 mg/dL (70-105); Osmolality,Calculated 280 (280-300); Potassium 3.7 mEq/L (3.5-5.1); Sodium 135 mEq/L (136-145)
[2021-11-18 14:39] LABS: Thyroid Stimulating Hormone 5.825 mcIU/mL (0.340-5.600)
[2021-11-18 15:04] LABS: Bilirubin,Urine Negative (Negative); Blood,Urine Negative (Negative); Clarity,Urine Clear (Clear); Color,Urine Light-Yellow (Yellow); Glucose,Urine (UA) Normal (Normal); Ketones,Urine 10 mg/dL (Negative); Leukocyte Esterase,Urine Negative (Negative); Nitrite,Urine Negative (Negative); Protein,Urine Negative (Neg-Trace); Urobilinogen,Urine Normal (Normal)
[2021-11-18] MEDS ORDERED: 0.9 % Sodium Chloride 500 ML IVC ONE ×2 (15:24→16:45)
[2021-11-18 15:32] LABS: Influenza A PCR Negative (Negative); Influenza B PCR Negative (Negative); Resp. Syncytial Virus PCR Negative (Negative)
[2021-11-18 15:36] LABS: SARS-CoV-2 by PCR (In House) Negative (Negative)
[2021-11-18 17:00] LABS: Troponin I < 0.03 ng/mL (< 0.04)
[2021-11-18] MEDS ORDERED: Ondansetron ODT 4 MG TAB.RAPDIS SL PRN (17:05)
[2021-11-18] MEDS ORDERED: Melatonin 3 MG TABLET PO PRN (17:05)
[2021-11-18] MEDS ORDERED: Naloxone 0.4 MG/ML INJ IVP PRN (17:05)
[2021-11-18 17:14] LABS: Triiodothyronine (T3) Free 2.77 pg/mL (2.50-3.90)
[2021-11-18 17:19] LABS: Triiodothyronine (T3) Total 109 ng/dL (87-178)
[2021-11-19 03:22] LABS: Basophils % 0.5 %; Eosinophils # 0.3 K/mcL (0.0-0.6); Eosinophils % 5.9 %; Hematocrit 36.1 % (37.5-50.1); Immature Granulocytes % 0.5 % (0-4); Lymphocytes # 1.2 K/mcL (0.6-4.6); Lymphocytes % 28.3 %; Mean Corpuscular HGB Conc 33.2 g/dL (31.6-35.5); Mean Corpuscular Hemoglobin 30.5 pg (28.0-33.3); Mean Corpuscular Volume 91.6 fL (83.0-100.0); Mean Platelet Volume 8.8 fL (9.4-12.4); Monocytes # 0.4 K/mcL (0.0-1.3); Monocytes % 10.1 %; Neutrophils # 2.3 K/mcL (1.6-8.9); Platelet Count 239 K/mcL (140-400); Red Blood Count 3.94 M/mcL (4.19-5.50); Red Cell Distribution Width 12.5 % (11.5-14.5); Segmented Neutrophils % 54.7 %; White Blood Count 4.2 K/mcL (4.3-11.1)
[2021-11-19 03:44] LABS: BUN/Creatinine Ratio 15 (6-26); Blood Urea Nitrogen 13 mg/dL (8-23); Calcium 8.7 mg/dL (8.6-10.3); Carbon Dioxide 26 mEq/L (23-29); Chloride 109 mEq/L (98-107); Glucose 107 mg/dL (70-105); Osmolality,Calculated 295 (280-300); Potassium 3.6 mEq/L (3.5-5.1); Sodium 142 mEq/L (136-145)
[2021-11-19] MEDS: Acetaminophen 325 MG TABLET PO PRN (22:47)
[2021-11-20 05:33] VITALS: O2SAT 98
[2021-11-20] MEDS ORDERED: Aspirin Enteric Coated 81 MG Tablet PO SCH (09:00)
[2021-11-20] MEDS: Acetaminophen 325 MG TABLET PO PRN (09:11)
[2021-11-20] MEDS ORDERED: Regadenoson 0.4 MG/5 ML SYRINGE IVP ONE (09:37)
[2021-11-20] MEDS ORDERED: Isosorbide MONOnitrate (24 HR) 30 MG TAB.ER.24H PO SCH (15:00)
[2021-11-20 16:03] VITALS: BP 145/74; PULSE 68; TEMP 97.3
== END 2021-11-20 17:16 | disposition home or self-care (01) | DRG 149 ==
LOC: EMEROOARM 12:46 → 3BNU 12:46 → SUATTDRO 17:12 → 3BNU 18:37
PROVIDERS: ADMIT Internal Medicine; ATTEND Registered Nurse